=== PATIENT | female | born 1990 | race Caucasian/White ===

== ENCOUNTER 2018-01-25 11:41 | Inpatient (IN) ==
[2018-01-25] MEDS ORDERED: Ringers Solution, Lactated 1,000 ML IVC SCH (12:00)
[2018-01-25 12:07] LABS: Bilirubin,Urine Negative (Negative); Blood,Urine Negative (Negative); Clarity,Urine Cloudy (Clear); Color,Urine Dark Yellow (Yellow); Glucose,Urine (UA) Normal (Normal); Ketones,Urine Negative (Negative); Leukocyte Esterase,Urine Large (Negative); Nitrite,Urine Negative (Negative); PH,Urine 6.5 pH Units (5.0-8.0); Protein,Urine Trace mg/dL (Neg-Trace); Specific Gravity,Urine 1.026 (1.010-1.025); Urobilinogen,Urine Normal (Normal)
[2018-01-25 12:09] LABS: Bacteria,Urine Many per hpf (None-Few); RBC,Urine 0-3 per hpf (0-3); Squamous Epithelial Cell,Urine Many per lpf (None-Few); WBC,Urine 50-100 per hpf (0-3)
[2018-01-25 12:19] LABS: Amphetamine Screen,Urine Negative ng/mL (Cutoff=1000); Barbiturate Screen,Urine Negative ng/mL (Cutoff=200); Benzodiazepines Screen,Urine Negative ng/mL (Cutoff=200); Cannabinoid Screen,Urine Negative ng/mL (Cutoff = 50); Cocaine Screen,Urine Negative ng/mL (Cutoff= 300); Opiate Screen,Urine Negative ng/mL (Cutoff=300); Phencyclidine Screen,Urine Negative ng/mL (Cutoff=25)
--- NOTE | 2018-01-25 17:43 | OB/GYN Progress Note ---
Date of Encounter: 01/25/18 Time of Encounter: 13:00 - Assessment and Plan (1) 35 weeks gestation of Status: Acute Reactive NST Urine NSF UDS neg LR 1 liter bolus immodium reglan 10mg Discharge home with OTC immodium and Rx for Reglan once a day Encouraged patient to follow up if diarrhea not resolved within [address] Alanis Encouraged patient to discuss use of reglan for gastroparesis with Dr Alanis Follow up with Dr Alanis for routine care and PRN (2) Diarrhea Status: Acute Qualifiers: Diarrhea type: unspecified type Qualified Code(s): R19.7 - Diarrhea, unspecified (3) NST (non-stress test) reactive Status: Acute Subjective - Subjective Principal diagnosis: diarrhea x 5 days and aaron Interval history: Ms Macdonald is a at 35 weeks that c/o diarrhea since last Friday. She states she has used the restroom multiple times a day and is feeling dehydrated. She c/o uterine cramping as well. She states positive movement. She denies headache, vision changes, epigastric pain, vaginal leaking , and vaginal bleeding. She is seen by Dr Alanis for this and states her only complication is gastroparesis which she is not currently taking any medications for as it has been manageable for most of her . Antepartum ROS: new complaints, movement normal, contractions, no loss of fluid, no vaginal bleeding Objective - Vital Signs Vital Signs: Intake and Output 01/25/18 01/25/18 01/25/18 07:59 15:59 23:59 Other: Weight 98.3 kg Patient Weight 01/25/18 23:59 Weight 98.3 kg - Exam FHR: auscultation normal, category 1 FHR comments: Uterine irritability per TOCO Auscultation: bilateral: normal Abdomen: Present: normal appearance, soft, gravid. Absent: tenderness Uterus: Present: normal. Absent: firm, tenderness Cervical dilation: FT Cervix effacement: Thick station: High - Labs Labs: Abnormal lab results Urine Clarity Cloudy (Clear) A 01/25/18 11:50 Ur Specific [place] 1.026 (1.010-1.025) H 01/25/18 11:50 Ur Leukocyte Esterase Large (Negative) H 01/25/18 11:50 Urine Microscopic WBC 50-100 per hpf (0-3) H 01/25/18 11:50 Ur Squamous Epith Cells Many per lpf (None-Few) H 01/25/18 11:50 Urine Bacteria Many per hpf (None-Few) H 01/25/18 11:50 Ur Culture Indicated? NO. (NO) A 01/25/18 11:50
== END 2018-01-25 15:10 | disposition home or self-care (01) | DRG 781 ==
LOC: 1NENULAB
PROVIDERS: ADMIT Advanced Practice Midwife; ATTEND Advanced Practice Midwife

== ENCOUNTER 2018-02-19 06:01 | Inpatient (IN) ==
[2018-02-19] MEDS ORDERED: Ringers Solution, Lactated 1,000 ML ONE ×3 (06:04→19:39)
[2018-02-19] MEDS ORDERED: Naloxone 0.4 MG/ML INJ IVP PRN (06:17)
[2018-02-19] MEDS ORDERED: Famotidine 20 MG/2 ML VIAL IVP PRN (06:17)
[2018-02-19] MEDS ORDERED: Metoclopramide 10 MG/2 ML VIAL IVP PRN (06:17)
[2018-02-19] MEDS ORDERED: Ringers Solution, Lactated 1,000 ML IVC SCH (06:30)
[2018-02-19 06:45] LABS: Basophils % 0.4 %; Eosinophils % 0.4 %; Hematocrit 34.2 % (35.3-44.9); Hemoglobin 11.3 g/dL (11.5-15.4); Immature Granulocytes % 1.1 % (0-4); Lymphocytes # 1.7 K/mcL (0.6-4.6); Lymphocytes % 17.3 %; Mean Corpuscular Hemoglobin 28.8 pg (28.0-33.3); Mean Platelet Volume 10.8 fL (9.4-12.4); Monocytes # 0.6 K/mcL (0.0-1.3); Monocytes % 5.9 %; Neutrophils # 7.3 K/mcL (1.6-8.9); Platelet Count 193 K/mcL (140-400); Red Blood Count 3.93 M/mcL (3.82-4.97); Red Cell Distribution Width 14.7 % (11.5-14.5); Segmented Neutrophils % 74.9 %
--- NOTE | 2018-02-19 07:06 | Anesthesia Evaluation PreOp ---
Date of Encounter: 02/19/18 Time of Encounter: 07:02 - Past History Planned Operation: repeat term Cardiac History: Denies any Significant Hx Pulmonary History: Denies Any Significant HX MILL HAND PLATE MILL History: Other (scolosis, two attempts for epidural in past (reported was fine numb for days after)) Other Medical History: Denies Any Significant HX Anesthesia History: No Prior Anesthetic Complications, Past Anesthesia (c- section, wisdom teeth, no family hx.) Alcohol Use: none Drug use: none Medications and Allergies Flintstones 02/19/18 [History] Zofran 02/19/18 [History] 3 Allergy/AdvReac Type Severity Reaction Status Date / Time acetaminophen [From Vicodin] AdvReac Anaphylaxis Verified 02/19/18 06:21 hydrocodone [From Vicodin] AdvReac Anaphylaxis Verified 02/19/18 06:21 Anesthesia Results - Labs 02/19/18 06:20 Anesthesia Exam - HEENT Pupil (Motor): Pupils equal Mallampati: IV Teeth: Normal Oral Opening: Greater than 3 - MILL HAND PLATE MILL LOC: Oriented MILL HAND PLATE MILL Motor: Normal RUE, Normal LUE, Normal RLE, Normal LLE, Normal Face MILL HAND PLATE MILL Sensory: Normal: RUE, LUE, RLE, LLE, Face - Cardiac Rhythm: Regular Murmur: None - Pulmonary Breath Sounds: bilateral Clear Respiratory Effort: Symmetrical Anesthesia Assess/Plan ASA Score: 2 Modified Nabeel Scale for Level of Consciousness: Cooperative, oriented, and tranquil Anesthetic Plan: General, Regional Monitoring Plan: Standard Monitors Recovery Plan: PACU
[2018-02-19] MEDS ORDERED: *HR* HYDROmorphone (PF) 1 MG/ML SYRINGE IVP PRN ×3 (07:08→13:13)
[2018-02-19] MEDS ORDERED: *HR* Oxytocin 10 UNIT/ML VIAL IM ONE (07:17)
[2018-02-19] MEDS ORDERED: Lidocaine -MPF 2% 5 ML VIAL ONE (07:17)
[2018-02-19] MEDS ORDERED: EPHEDrine 50 MG/ML VIAL ONE (07:17)
[2018-02-19] MEDS ORDERED: Morphine Sulfate/PF 5mg/10mL Vial ONE (07:18)
[2018-02-19] MEDS ORDERED: *HR* FentaNYL (PF) 100 MCG/2 ML VIAL ONE (07:18)
[2018-02-19] MEDS ORDERED: CeFAZolin Premix DUPLEX 2,000 MG/50 ML BAG IVPB ONE (07:25)
[2018-02-19] MEDS ORDERED: Ondansetron 4 MG/2 ML VIAL ONE (08:15)
[2018-02-19 08:47] LABS: Amphetamine Screen,Urine Negative ng/mL (Cutoff=1000); Barbiturate Screen,Urine Negative ng/mL (Cutoff=200); Benzodiazepines Screen,Urine Negative ng/mL (Cutoff=200); Cannabinoid Screen,Urine Negative ng/mL (Cutoff = 50); Cocaine Screen,Urine Negative ng/mL (Cutoff= 300); Opiate Screen,Urine Negative ng/mL (Cutoff=300); Phencyclidine Screen,Urine Negative ng/mL (Cutoff=25)
[2018-02-19] MEDS ORDERED: *HR* Promethazine 25 MG/ML VIAL IVP PRN (08:51)
[2018-02-19] MEDS ORDERED: Acetaminophen IV 1,000 MG/100 ML INFUS..BTL IVPB ONE (08:51)
--- NOTE | 2018-02-19 09:23 | OB/GYN Procedure Note ---
Section - Date of procedure: 02/19/18 Preop diagnosis: desires repeat Post-op diagnosis: same Procedure: repeat low transverse Surgeon: Rusty Engle Blood Loss: 700 Was there an digital sales assistant present: No Anesthesiologist: Gian Rosario Senior Software Engineer Analytics: Gerson Hough Anesthesia Type: Epidural section complications: none Disposition: PACU Specimens: Placenta - Infant (s) A Infant Delivery Date: 02/19/18 Infant Delivery Time: 08:30 Presentation: vertex Position: OA Route of delivery: other Gender: Female Viability: Viable Pounds: 8 Ounces: 3 Gram Weight: 3.71 kg at 1 minute: 9 at 5 minutes: 9 Placenta: spontaneous Cord: nuchal cord - Narrative Narrative: Patient scheduled for a repeat section at 39+ weeks. Patient presented to labor and delivery. After informed consent was obtained this patient was taken back to the operating room where she was given spinal anesthesia. She was then prepped and draped in the usual sterile fashion. Once adequate analgesia was achieved a Pfannenstiel incision was made through patient's previous scar and carried sharply through the subtenons fatty tissue, to the fascial layer was reached. The fascia was then nicked in the midline, and incised bilaterally with Granado scissors. It was then dissected vertically for adequate exposure. Rectus abdominis musculature was in the midline. The peritoneum was sharply entered and dissected vertically. A bladder blade was placed at the inferior margin incision. The bladder flap was then developed without difficulty. A low transverse incision was then made in lower segment. We had to go through the placenta in order to get the baby. Fluid was noted be clear. The infant's head was then delivered. There was a cord around the neck 1 which was easily reduced. The risks of the was not delivered easily. was crying immediately upon delivery. Cord was clamped cut after 60 seconds. The was in past to nursing in attendance. Cord blood was obtained. The placenta was not delivered via uterine lavage and massage. The uterus was then delivered. The uterine incision was then closed with 0 Vicryl suture running locking fashion after uterine lavage performed. Having excellent hemostasis the uterus was replaced in the pelvic cavity. The pelvic cavity was then rinsed thoroughly with sterile water testing all bleeders were then cauterized. C no bleeding the procedure was terminated. Sponge needle and instrument counts correct 2. The fascia was then closed with 0 Vicryl suture in a running nonlocking fashion. The suprafascial region was rinsed thoroughly with sterile water 2. All bleeders were cauterized. Subcutaneous stitches were placed with 0 Vicryl suture. The skin was closed russell. Assessment blood loss 700 mL finding is a female infant weight was 8 lbs. 3 oz. Apgars were 9 at 1 minute and 9 at 5 minutes.
[2018-02-19] MEDS ORDERED: Oxytocin 20 units/ LR 1000 mL 20 UNIT/1,000 ML BAG IVC ONE (10:48)
[2018-02-19] MEDS ORDERED: Measles/Mumps/Rubella Vacc 0.5 ML VIAL SQ PRN (11:41)
[2018-02-19] MEDS ORDERED: Oxytocin 20 units/ LR 1000 mL 20 UNIT/1,000 ML BAG IVC SCH (11:41)
[2018-02-19] MEDS ORDERED: *HR* Nalbuphine 10 MG/ML AMPUL IV PRN (12:16)
[2018-02-19] MEDS ORDERED: *HR* OxyCODONE/APAP 5/325 TABLET PO PRN (13:13)
--- NOTE | 2018-02-19 13:22 | Anesthesia Evaluation Post Op ---
Date of Encounter: 02/19/18 Time of Encounter: 12:08 - Vital Signs Vital Signs: vss - Lungs Lungs: Clear Ascult./Percussion - Airway Airway: Non-obstructed - Mental Status Mental Status: Alert & Oriented, Answers Appropriately - Pain Pain Scale used: Garrett-Coyne (Faces) (c/o itching, new med ordered.) - Nausea Vomiting Nausea Vomiting: Not Present - Hydration Hydration: Ice chips - Discharge PostOp Status: Transfer Patient to floor
[2018-02-19] MEDS: Acetaminophen 325 MG TABLET PO PRN (17:20)
[2018-02-20] MEDS: Acetaminophen 325 MG TABLET PO PRN ×2 (00:45→21:09)
[2018-02-20] MEDS ORDERED: Ringers Solution, Lactated 1,000 ML ONE (03:13)
[2018-02-20 05:46] LABS: Basophils % 0.1 %; Eosinophils # 0.1 K/mcL (0.0-0.6); Eosinophils % 0.6 %; Hematocrit 26.3 % (35.3-44.9); Immature Granulocytes % 0.7 % (0-4); Lymphocytes # 1.2 K/mcL (0.6-4.6); Lymphocytes % 12.3 %; Mean Corpuscular HGB Conc 32.7 g/dL (31.6-35.5); Mean Corpuscular Hemoglobin 28.5 pg (28.0-33.3); Mean Corpuscular Volume 87.1 fL (83.0-100.0); Monocytes # 0.7 K/mcL (0.0-1.3); Monocytes % 6.8 %; Neutrophils # 7.8 K/mcL (1.6-8.9); Platelet Count 183 K/mcL (140-400); Red Blood Count 3.02 M/mcL (3.82-4.97); Red Cell Distribution Width 15.1 % (11.5-14.5); Segmented Neutrophils % 79.5 %
[2018-02-20 05:50] LABS: Hemoglobin 8.6 g/dL (11.5-15.4)
[2018-02-20] MEDS: Prenatal Vit/FA 1 EACH TABLET PO SCH (09:03)
[2018-02-20] MEDS: *HR* OxyCODONE/APAP 10/325 TABLET PO PRN ×2 (10:13→15:53)
--- NOTE | 2018-02-20 14:41 | OB/GYN Progress Note ---
Date of Encounter: 02/20/18 Time of Encounter: 14:39 - Assessment and Plan (1) 39 weeks gestation of Current Visit: Yes Status: Acute (2) Status post repeat low transverse section Current Visit: Yes Status: Acute Doing well. Wishes to go home tomorrow. Subjective - Subjective Principal diagnosis: POD1 Interval history: 27 yo female underwent repeat section without complications. Postop doing well. No complaints. Patient reports: appetite normal, pain well controlled, ambulating normally [place]: doing well, nursing well Objective - Vital Signs Latest vital signs: Vital Signs Temp Pulse Resp BP Pulse Ox 02/20/18 07:55 98.7 F 117 20 95/61 95 02/20/18 03:10 98.3 F 110 14 99/58 95 02/19/18 23:36 99.4 F 90 14 93/58 97 02/19/18 19:49 98.5 F 100 16 99/64 95 02/19/18 15:12 97.9 F 89 16 100/65 95 Intake and Output 02/19/18 02/20/18 02/20/18 23:59 07:59 15:59 Intake Total 0 / 0 360 / 360 Output Total 1200 / 1200 1000 / 1000 1400 / 1400 Balance -1200 / -1200 -1000 / -1000 -1040 / -1040 Intake: Oral 0 / 0 360 / 360 Output: Urine 0 / 0 700 / 700 Straight Cath 700 / 700 Catheter 1200 / 1200 1000 / 1000 Other: Meal Lunch Percent of Meal Consumed 100% Weight 94.665 kg Patient Weight 02/20/18 23:59 Weight 94.665 kg - Exam Lungs: bilateral: normal Chest: Normal S1, Normal S2 Extremities: Present: normal Abdomen: Present: normal appearance, soft Incision: Present: normal, dry, intact Uterus: Present: normal - Labs Labs: Laboratory Results - last 24 hr 02/20/18 05:01 WBC 9.9 RBC 3.02 L Hgb 8.6 L D Hct 26.3 L MCV 87.1 MCH 28.5 MCHC 32.7 RDW 15.1 H Plt Count 183 MPV 10.0 Immature Gran % 0.7 Seg Neutrophils % 79.5 Lymphocytes % 12.3 Monocytes % 6.8 Eosinophils % 0.6 Basophils % 0.1 Neutrophils # 7.8 Lymphocytes # 1.2 Monocytes # 0.7 Eosinophils # 0.1 Basophils # 0.0
[2018-02-20] MEDS: Ibuprofen 600 MG TABLET PO PRN (14:54)
[2018-02-21] MEDS: Simethicone 80 MG TAB.CHEW PO PRN ×2 (00:02→09:33)
[2018-02-21] MEDS ORDERED: *HR* OxyCODONE/APAP 5/325 TABLET PO ONE (01:13)
[2018-02-21] MEDS: *HR* OxyCODONE/APAP 10/325 TABLET PO PRN (06:23)
[2018-02-21 09:23] VITALS: BP 114/62
[2018-02-21] MEDS: Prenatal Vit/FA 1 EACH TABLET PO SCH (09:33)
[2018-02-21] MEDS: Ibuprofen 600 MG TABLET PO PRN (09:33)
--- NOTE | 2018-02-21 09:57 | Discharge Summary ---
Date of Encounter: 02/21/18 Time of Encounter: 09:54 - Discharge Diagnosis (1) 39 weeks gestation of Priority: Secondary Status: Acute (2) Status post repeat low transverse section Priority: Primary Status: Acute (3) Term of female Priority: Secondary Status: Acute - Discharge Medications Prescriptions: Oxycodone HCl/Acetaminophen [Percocet 5-325 mg Tablet] 1 each PO Q6HR PRN 7 Days #28 tablet PRN Reason: Pain Cephalexin [Keflex] 500 mg PO 1-2XD 7 Days #14 capsule Home Medications: Flintstones 02/19/18 [History] Acetaminophen [Tylenol] 650 mg PO Q6HR PRN tablet 02/21/18 [Rx] Cephalexin [Keflex] 500 mg PO 1-2XD 7 Days #14 capsule 02/21/18 [Rx] Oxycodone HCl/Acetaminophen [Percocet 5-325 mg Tablet] 1 each PO Q6HR PRN 7 Days #28 tablet 02/21/18 [Rx] Allergies/Adverse Reactions: 3 Allergy/AdvReac Type Severity Reaction Status Date / Time acetaminophen [From Vicodin] AdvReac Anaphylaxis Verified 02/19/18 06:21 hydrocodone [From Vicodin] AdvReac Anaphylaxis Verified 02/19/18 06:21 Data Procedures and tests throughout hospitalization: Laboratory Tests 02/19/18 02/19/18 02/20/18 06:20 06:20 05:01 WBC 9.8 9.9 RBC 3.93 3.02 L Hgb 11.3 L 8.6 L D Hct 34.2 L 26.3 L MCV 87.0 87.1 MCH 28.8 28.5 MCHC 33.0 32.7 RDW 14.7 H 15.1 H Plt Count 193 183 MPV 10.8 10.0 Immature Gran % 1.1 0.7 Seg Neutrophils % 74.9 79.5 Lymphocytes % 17.3 12.3 Monocytes % 5.9 6.8 Eosinophils % 0.4 0.6 Basophils % 0.4 0.1 Neutrophils # 7.3 7.8 Lymphocytes # 1.7 1.2 Monocytes # 0.6 0.7 Eosinophils # 0.0 0.1 Basophils # 0.0 0.0 Urine Opiates Screen Negative Ur Barbiturates Screen Negative Ur Phencyclidine Scrn Negative Ur Amphetamines Screen Negative U Benzodiazepines Scrn Negative Urine Cocaine Screen Negative U Marijuana (THC) Screen Negative Ur Drug Screen Interp See Below Date of admission: 02/19/18 06:01 Primary care physician: Cinthia El CNP Consults: 02/19/18 11:41 Consult to Store Product Demonstrator [CONS] Routine Comment: Vaginal delivery, consult needed Discharging clinician: Rusty Alanis Anticipated date of discharge: 02/21/18 - Patient Status Disposition: Home, Self-Care Condition: Good Functional capacity at discharge: independent ambulation Overall status at discharge: patient is back to baseline - Discharge Instructions Follow Up With: Cinthia El CNP [Primary Care Provider] - - Diet and Activity Activity: resume usual activities as tolerated Diet: advance to your usual diet Hospital Course Procedures: repeat LTCS Reason for admission: section Delivery: section complications: none Discharge diagnosis: IUP at term delivered [place] baby: female Hospital course: Uncomplicated repeat section. Postop patient and baby doing well. No complaints. Wishing to go home today. Time Attestation: Total time spent providing and/or coordinating discharge services: Time Spent: Less than 30 minutes - VTE Reasons for not Prescribing Prophylaxis: Treatment not Indicated - Low risk for VTE Documentation of Mechanical Device: Intermittent pneumatic compression device Exam - Constitutional Vitals: Temp Pulse Resp BP Pulse Ox 98.2 F 99 16 114/62 96 02/21/18 09:23 02/21/18 09:23 02/21/18 09:43 02/21/18 09:23 02/21/18 09:23 General appearance IM: A&O X 3 - Respiratory Respiratory exam: Present: CTAB - Cardiovascular Cardiovascular exam IM: Present: RRR - GI/Abdominal GI/Abdominal exam IM: normal bowel sounds Incision: normal, dry, intact - Uterus Position: 3 Fingers Below Umbilicus - Extremities Exam Extremities exam IM: Present: normal inspection - Neurological Exam Neurological exam: normal gait, oriented X3
== END 2018-02-21 13:05 | disposition home or self-care (01) | DRG 766 ==
LOC: 1NENULAB 06:01 → 1NENUOBS 11:38
PROVIDERS: ADMIT Obstetrics & Gynecology; ATTEND Obstetrics & Gynecology